=== PATIENT | female | born 1950 | race Caucasian/White ===

== ENCOUNTER 2019-09-13 17:15 | Inpatient (IN) | payer OTHER, MEDICAID ==
[~2019-09-13] VITALS: Ht 157.5 cm; Wt 78.0 kg
[2019-09-13 17:15] VITALS: BP_SYST 130
--- NOTE | 2019-09-13 17:20 | NUR ---
Patient triaged and placed in waiting room. VSS and patient appears in no acute distress at this time. Accompanied by FAMILY, awaiting available bed, and MD notified of need for MSE.
--- NOTE | 2019-09-13 17:45 | NUR ---
SPOKE IN DEPTH WITH SON AND DAUGHTER IN LAW REGARDING PLACEMENT FOR PATIENT. SON STATES THAT HE HAS HAD CONTACT WITH [facility] AND IS ON WAITING LIST FOR [facility].
--- NOTE | 2019-09-13 18:15 | NUR ---
Patient presented to ER C/O generalized weakness. Patient BIB son, Pt A&OX4, ambulatory to ER, skin pink and warm, afebrile. Son of patient state pt has increased shakiness, increase in needing assistance with ADLs, decrease in strength, patient intermittent incontinent & increase in UTI, Patient denies pain at this time, denies N/V/D, Hx of dementia.
[2019-09-13 18:31] LABS: BILIRUBIN,URINE NEGATIVE (NEGATIVE); BLOOD, URINE NEGATIVE (NEGATIVE); CLARITY/URINE CLEAR (CLEAR); COLOR,URINE YELLOW (YELLOW); GLUCOSE,URINE NEGATIVE (NEGATIVE); KETONES,URINE NEGATIVE (NEGATIVE); NITRITE, URINE NEGATIVE (NEGATIVE); PH,URINE 5.5 (5.0-8.0); PROTEIN URINE NEGATIVE (NEGATIVE); UROBILINOGEN,URINE 0.2 (0.2-1.0)
[2019-09-13 18:45] LABS: BASOPHILS # (AUTO) 0.1 K/uL (0.0-0.2); BASOPHILS % (AUTO) 0.9 % (0.0-2.0); EOSINOPHILS # (AUTO) 0.1 K/uL (0.0-0.4); HEMATOCRIT 38.3 % (36-48); LYMPHOCYTES # (AUTO) 1.8 K/uL (1.0-5.5); LYMPHOCYTES % (AUTO) 27.6 % (20.5-51.5); MEAN CORPUSCULAR HEMOGLOBIN 30 pg (27-31); MEAN CORPUSCULAR HGB CONC 34 % (32-36); MEAN CORPUSCULAR VOLUME 89 fL (79.0-98.0); MONOCYTES # (AUTO) 0.5 K/uL (0.0-1.0); MONOCYTES % (AUTO) 7.9 % (1.7-9.3); NEUTROPHILS % (AUTO) 61.6 % (40.0-70.0); PLATELET COUNT (AUTO) 182 K/uL (130-430); RED BLOOD CELL COUNT(AUTO) 4.31 MIL/uL (4.2-6.2); RED CELL DISTRIBUTION WIDTH 12.6 % (9.0-15.0); WHITE BLOOD COUNT (AUTO) 6.6 K/uL (4.8-10.8)
[2019-09-13 18:48] LABS: LEUKOCYTE ESTERASE ,URINE TRACE (NEGATIVE)
[2019-09-13 18:50] LABS: CREATININE 0.95 mg/dL (0.55-1.30)
[2019-09-13 18:51] LABS: BACTERIA,URINE FEW /HPF (None Seen); MUCUS,URINE None Seen /LPF (None Seen); RBC,URINE NONE SEEN /HPF (0-3)
[2019-09-13 18:56] LABS: ALBUMIN 3.7 g/dL (3.4-4.8); TOTAL BILIRUBIN 0.4 mg/dL (0.0-1.0)
--- NOTE | 2019-09-13 19:13 | NUR ---
Report to Ayaan MARCUM
--- NOTE | 2019-09-13 20:17 | NUR ---
Pt taken to Radiology in stable condition
[2019-09-13 20:38] LABS: THYROID STIMULATING HORMONE 2.61 uIu/mL (0.36-3.74)
--- NOTE | 2019-09-13 21:00 | NUR ---
Bedside explaining plan of care.
[2019-09-13] MEDS ORDERED: NITROFURANTOIN MONOHYD/M-CRYST 100 MG CAPSULE PO ONE (21:15)
--- NOTE | 2019-09-13 21:20 | NUR ---
Called Telemetry Floor for bed assignment. No bed avail
--- NOTE | 2019-09-13 21:31 | NUR ---
Pt resting in ED bed comfortably. No acute distress noted. family bedside.
--- NOTE | 2019-09-13 21:40 | NUR ---
Called Telemetry floor for assignment. No beds currently clean and avail. Stated will be ready in 30 minutes.
--- NOTE | 2019-09-13 22:40 | NUR ---
Patient will be admitted to care of [facility]. Admitted to Tele unit. Will go to room 105B. Belongings list completed. Complete and up to date summary report printed. SBAR report to be given at bedside with opportunity for questions.
[2019-09-13] MEDS: D5LR 1,000 ML IV SCH (22:44)
--- NOTE | 2019-09-13 22:45 | NUR ---
Transfer to Tele via ACLS protocol. Licensed nurse present. IV present no signs or symptoms of infiltration.
--- NOTE | 2019-09-13 22:58 | NUR ---
ADMISSION NOTE Received patient from ER via [facility] under the care of Dr. Uribe. Patient admitted with diagnosis of Bradycardia, Failure to thrive. Patient is awake, alert, oriented X 3. Patient oriented to hospital room, call light, toileting, pain management and safety-teach back done. Patient informed that her nurse will be Gilda MARCUM and that her room number is 105B. Call light within reach. Will continue to monitor patient condition.
--- NOTE | 2019-09-13 23:00 | NUR ---
ADMISSION PHYSICAL ASSESSMENT NOTES; pt. was admitted from ER accompanied by her son and daughter in law with DX Failure to thrive and Bradycardia and UTI. pt. alert, awake, oriented to room and use of call light and bed control. pt. denies any pain, on room air. pt. able to move all extremities, pt. forgets and always need to be reminded. bed alarm on, fall risk precautions noted. IVF to restart on left hand.
[2019-09-13 23:30] VITALS: BP_SYST 156
--- NOTE | 2019-09-13 23:30 | NUR ---
NOTES: routine admission done, questions asked and son pretty much gave information. Dr. Uribe here and talked to pt. son and informed about medications, will call later for meds dosages and frequency.
--- NOTE | 2019-09-13 23:45 | NUR ---
NOTES: pt. assisted to the restroom, ambulated and settled in bed. had snacks (sandwich and jello). IVF infusing with D5LR @ 60 cc/hr.
--- NOTE | 2019-09-14 00:07 | NUR ---
NOTES: pt. forgot, get out of bed without calling, reminded again not to get out by herself., call light within reach.
[2019-09-14] MEDS: LEVOFLOXACIN 250 MG/D5W 50 ML IV SCH ×2 (00:56→23:32)
[2019-09-14] MEDS ORDERED: LEVOFLOXACIN 250 MG/D5W 50 ML IV ONE (00:58)
[2019-09-14] MEDS ORDERED: DONE10TA44 PO (01:09)
[2019-09-14] MEDS ORDERED: BUSP5TAB3 PO (01:09)
[2019-09-14] MEDS ORDERED: CITA40TA22 PO (01:09)
[2019-09-14] MEDS ORDERED: LIP20 PO (01:09)
[2019-09-14] MEDS ORDERED: LEVO75TA7 PO (01:09)
[2019-09-14] MEDS ORDERED: LISI10TA5 PO (01:09)
--- NOTE | 2019-09-14 01:42 | NUR ---
NOTES: pt. bed alarm went off, pt. assisted by charge nurse to restroom and voided. back to bed and repositioned self. turn back bed alarm. continue to monitor.
--- NOTE | 2019-09-14 02:24 | NUR ---
CONSULTATION PAGED/CALLED Reason for Consultation: ATAXIA Person Who was Notified: VISH Consulting Physician: DR. HERBERT Ordering Physician: DR. TAVERA
--- NOTE | 2019-09-14 02:24 | NUR ---
CONSULTATION PAGED/CALLED Reason for Consultation: BRADYCARDIA Person Who was Notified: VISH Consulting Physician: DR. MARCELO; LEAD MAINTENANCE TECHNICIAN - DR. MANUEL Ordering Physician: DR. TAVERA
--- NOTE | 2019-09-14 04:00 | NUR ---
NOTES: pt. checked, sleeping comfortably at this time. condition observed.
--- NOTE | 2019-09-14 06:00 | NUR ---
NOTES: pt. up and assisted to restroom, able to ambulate. urine specimen needed, was not able to catch on the urine hat, will endorse to day shift. IVF resume and repositioned for comfort.
--- NOTE | 2019-09-14 06:45 | NUR ---
CLOSING NOTES; pt. went back to sleep. IVF patent. no c/o noted. on fall risk precautions, bed alarm on. for further care and assistance. frquent round, forgets to use call light. .
--- NOTE | 2019-09-14 07:30 | NUR ---
OPENING NOTES: RECEIVED PATIENT FROM GLOST TILE SHADER NURSE. PATIENT IS AWAKE AND ALERT x2 LAYING DOWN IN BED. PATIENT DENIES ANY PAIN AT THE MOMENT. PATIENT IS TOLERATING OXYGEN AT ROOM AIR WITH NO SIGNS OF DISTRESS OR SHORTNESS OF BREATH NOTED. IV SITE IS PATENT WITH NO SIGNS OF INFILTRATION. PATIENT IN STABLE CONDITION. SAFETY, FALL AND ASPIRATION PRECAUTIONS ARE IN PLACE. BED LOCKED IN LOWEST POSITION WITH CALL LIGHT IN REACH. WILL CONTINUE TO MONITOR PATIENT FOR ANY CHANGES.
[2019-09-14 08:18] VITALS: BP_SYST 141
[2019-09-14 08:29] LABS: BASOPHILS % (AUTO) 0.8 % (0.0-2.0); EOSINOPHILS # (AUTO) 0.1 K/uL (0.0-0.4); EOSINOPHILS % (AUTO) 2.5 % (0.0-4.0); HEMATOCRIT 35.4 % (36-48); HEMOGLOBIN 11.9 g/dL (12.0-16.0); LYMPHOCYTES % (AUTO) 34.9 % (20.5-51.5); MEAN CORPUSCULAR HEMOGLOBIN 30 pg (27-31); MEAN CORPUSCULAR HGB CONC 34 % (32-36); MEAN CORPUSCULAR VOLUME 89 fL (79.0-98.0); MONOCYTES # (AUTO) 0.5 K/uL (0.0-1.0); NEUTROPHILS # (AUTO) 3.1 K/uL (1.8-7.7); NEUTROPHILS % (AUTO) 52.8 % (40.0-70.0); PLATELET COUNT (AUTO) 150 K/uL (130-430); RED BLOOD CELL COUNT(AUTO) 3.97 MIL/uL (4.2-6.2); RED CELL DISTRIBUTION WIDTH 12.6 % (9.0-15.0); WHITE BLOOD COUNT (AUTO) 5.8 K/uL (4.8-10.8)
[2019-09-14 08:43] LABS: CALCIUM 8.5 mg/dL (8.4-11.0); CREATININE 0.91 mg/dL (0.55-1.30); POTASSIUM 3.5 mmol/L (3.5-5.1)
[2019-09-14 09:23] LABS: ERYTHROCYTE SEDIMENTATION RATE 13 MM/HR (0-20)
--- NOTE | 2019-09-14 09:58 | NUR ---
Nutrition Update Terell Scale 18 noted. Pt admitted for bradycardia, FTT Diet: regular, mech soft BMI: 31.6 kg/m2 RD to follow per nutrition care standards.
--- NOTE | 2019-09-14 10:05 | NUR ---
RN ROUNDS: PATIENT IS AWAKE AND ALERT x2 LAYING DOWN IN BED. FAMILY AT BEDSIDE. PATIENT DENIES ANY PAIN AT THE MOMENT. NO SIGNS OF DISTRESS OR SHORTNESS OF BREATH NOTED. PATIENT IN STABLE CONDITION. WILL CONTINUE TO MONITOR PATIENT FOR ANY CHANGES.
[2019-09-14 11:19] VITALS: BP_SYST 137
--- NOTE | 2019-09-14 12:15 | NUR ---
RN ROUNDS: PATIENT IS AWAKE AND ALERT x2 SITTING UP IN BED. FAMILY AT BEDSIDE. PATIENT DENIES ANY PAIN AT THE MOMENT. NO SIGNS OF DISTRESS OR SHORTNESS OF BREATH NOTED. PATIENT IN STABLE CONDITION. WILL CONTINUE TO MONITOR PATIENT FOR ANY CHANGES.
--- NOTE | 2019-09-14 12:30 | NUR ---
MD ROUNDS: DR. MARCELO MAKING HIS ROUNDS. AWARE OF PATIENT'S CONDITION. NEW ORDERS GIVEN.
[2019-09-14] MEDS: D5LR 1,000 ML IV SCH (13:04)
--- NOTE | 2019-09-14 14:10 | NUR ---
RN ROUNDS: PATIENT IS AWAKE AND ALERT x2 LAYING DOWN IN BED. NO SIGNS OF DISTRESS OR SHORTNESS OF BREATH NOTED. PATIENT IN STABLE CONDITION. WILL CONTINUE TO MONITOR PATIENT FOR ANY CHANGES.
[2019-09-14] MEDS ORDERED: LISINOPRIL 10 MG TABLET (PRINIVIL) PO ONE (15:15)
[2019-09-14] MEDS ORDERED: LEVOTHYROXINE SODIUM 0.075 MG TABLET PO ONE (15:15)
[2019-09-14 15:45] VITALS: BP_SYST 140
--- NOTE | 2019-09-14 16:06 | NUR ---
RN ROUNDS: PATIENT IS AWAKE AND ALERT x2 LAYING DOWN IN BED. NO SIGNS OF DISTRESS OR SHORTNESS OF BREATH NOTED. PATIENT WAS ASSISTED TO THE RESTROOM. NO SIGNS OF DISTRESS OR SHORTNESS OF BREATH NOTED. PATIENT IN STABLE CONDITION. WILL CONTINUE TO MONITOR PATIENT FOR ANY CHANGES.
--- NOTE | 2019-09-14 16:38 | NUR ---
P.T. NOTES P.T. HENRY COMPLETED; PATIENT MAY MELLISA W/ NURSE AD GUSTAVO; VERY FORGETFUL. Addendum: 09/14/19 at 1638 by Rosana Benedict PT Amended: Links added.
--- NOTE | 2019-09-14 16:45 | NUR ---
Dietitian Recommendations *Continue Regular, Mechanical Soft diet Please see Nutrition Assessment for further details. LT, RD
--- NOTE | 2019-09-14 18:47 | NUR ---
CLOSING NOTES: PATIENT IS AWAKE AND ALERT x2 LAYING DOWN IN BED. PATIENT DENIES ANY PAIN AT THE MOMENT. PATIENT IS TOLERATING OXYGEN AT ROOM AIR WITH NO SIGNS OF DISTRESS OR SHORTNESS OF BREATH NOTED. IV SITE IS PATENT WITH NO SIGNS OF INFILTRATION. PATIENT IN STABLE CONDITION. SAFETY, FALL AND ASPIRATION PRECAUTIONS REMAINED IN PLACE THROUGHOUT THE SHIFT. BED LOCKED IN LOWEST POSITION WITH CALL LIGHT IN REACH. WILL ENDORSE PATIENT CARE TO ONCOMING KILN FURNITURE CASTER NURSE.
--- NOTE | 2019-09-14 19:15 | NUR ---
OPENING NOTES Late entry due to patient care. Bedside report received from dayshift nurse. Patient received lying in bed, awake, watching TV. No s/s of acute distress noted. Breathing even and unlabored. IVF infusing well. Call light with patient. Bed alarm on. Will continue to monitor.
[2019-09-14 20:00] VITALS: BP_SYST 145
[2019-09-14] MEDS: ATORVASTATIN 20 MG TABLET PO SCH (21:08)
[2019-09-14] MEDS: DONEPEZIL HCL 5 MG TABLET (ARICEPT) PO SCH (21:08)
--- NOTE | 2019-09-14 21:30 | NUR ---
ROUNDS Patient in bed sleeping. No s/s of acute distress noted. Breathing even and unlabored. IVF infusing well. Call light with patient. Bed alarm on. Will continue to monitor.
--- NOTE | 2019-09-15 00:15 | NUR ---
ASSISTED TO VOID Patient assisted to bathroom and back to bed, voided, patient tolerated well. All needs met. Call light with patient. Bed alarm on. Will continue to monitor.
[2019-09-15 00:35] VITALS: BP_SYST 156
--- NOTE | 2019-09-15 03:00 | NUR ---
ROUNDS Patient asleep. No s/s of acute distress noted. Breathing even and unlabored. Call light with patient. Bed alarm on. Will continue to monitor.
--- NOTE | 2019-09-15 05:00 | NUR ---
ROUNDS Patient asleep. All needs met. Bed alarm on. Will continue to monitor.
[2019-09-15] MEDS: D5LR 1,000 ML IV SCH (06:22)
--- NOTE | 2019-09-15 06:38 | NUR ---
CLOSING NOTES Patient in bed sleeping at this time. No s/s of acute distress noted. Breathing even and unlabored. IVF infusing well, IV site patent, no signs of infiltration or infection noted. SCDs attached and operating. All needs met throughout shift. Fall and safety precautions maintained throughout shift. Will continue to monitor until patient care is endorsed to oncoming dayshift nurse.
[2019-09-15 09:06] LABS: PREALBUMIN 19 mg/dL (10-36)
[2019-09-15 09:50] VITALS: BP_SYST 167
--- NOTE | 2019-09-15 09:50 | NUR ---
Neuro/mobility Patient just woke up , ambulates to bathroom with stand bye assist , steady gait ,patient doesn't call when shes getting out of bed , on bed alarm for safety, very forgetful as verbalized, oriented to herself date of , place , reoriented patient to room, safety, handwashing, served breakfast 75% tolerates well due meds given , patient wants go back to sleep after meal, safety/fall precaution initiated.
[2019-09-15] MEDS: LEVOTHYROXINE SODIUM 0.075 MG TABLET PO SCH (09:53)
[2019-09-15] MEDS: LISINOPRIL 10 MG TABLET (PRINIVIL) PO SCH (09:54)
[2019-09-15 11:12] VITALS: BP_SYST 114
--- NOTE | 2019-09-15 14:11 | NUR ---
Discharge Planning: DCP spoke received DC order for HH, DCP spoke to patient to inquire of any previous home health. Patient had no preference, DCP faxed to [facility] (f [phone] p [phone]). Addendum: 09/15/19 at 1626 by Philomena RAMIREZ [facility] (f [phone] p [phone]) accepted pt, DCP spoke to patient she metion to call her son also. DCP spoke to son Keegan [phone] the discharge plan for patient is to go to [facility] and then to [facility]. Son stated family is not feeling it is safe for patient to live alone any longer. Keegan stated he has visited many SNF's. Addendum: 09/15/19 at 1647 by Philomena David DP DCP receive DC order for SNF. DCP faxed to [facility].
--- NOTE | 2019-09-15 14:36 | NUR ---
Patient resting provided warm blanket, safety/fall precaution initiated.
[2019-09-15 15:04] VITALS: BP_SYST 112
--- NOTE | 2019-09-15 18:13 | NUR ---
No significant changes in assessment , needs attended, safety/fall precaution initiated.
--- NOTE | 2019-09-15 19:28 | NUR ---
OPENING NOTES Bedside report received from dayshift nurse. Patient received lying in bed, awake, watching TV. NO s/s of acute distress noted. Breathing even and unlabored. Patient's family members at bedside. Call light with patient. Bed alarm on. Will continue to monitor.
[2019-09-15 20:00] VITALS: BP_SYST 119
[2019-09-15] MEDS: ATORVASTATIN 20 MG TABLET PO SCH (20:28)
[2019-09-15] MEDS: DONEPEZIL HCL 5 MG TABLET (ARICEPT) PO SCH (20:28)
--- NOTE | 2019-09-15 21:00 | NUR ---
ASSISTED TO BATHROOM Patient assisted to bathroom and back to bed by RN. Patient tolerated well. Call light with patient. Bed alarm on. Will continue to monitor.
[2019-09-15] MEDS: LEVOFLOXACIN 250 MG/D5W 50 ML IV SCH (22:33)
--- NOTE | 2019-09-15 23:00 | NUR ---
NEW IV Previous IV site was leaking, removed by RN at this time, catheter fully intact, no active bleeding noted. New IV site at right forearm, 22gauge, patient tolerated well. IV antibiotic infusing well. Call light with patient. Bed alarm on. Will continue to monitor.
[2019-09-16 00:50] VITALS: BP_SYST 133
--- NOTE | 2019-09-16 01:00 | NUR ---
ROUNDS Patient in bed sleeping at this time. No signs of discomfort noted. Chest rise and fall even bilaterally. IVF infusing well. Call light with patient. Bed alarm on. Will continue to monitor.
--- NOTE | 2019-09-16 03:00 | NUR ---
ROUNDS Patient in bed asleep. No s/s of acute distress noted. Breathing even and unlabored. Call light with patient. Bed alarm on. Will continue to monitor.
--- NOTE | 2019-09-16 05:00 | NUR ---
ROUNDS Patient asleep at this time. No signs of discomfort noted. Chest rise and fall even bilaterally. Call light with patient. Bed alarm on. Will continue to monitor.
--- NOTE | 2019-09-16 06:43 | NUR ---
CLOSING NOTES Patient in bed sleeping at this time. No s/s of acute distress noted. Breathing even and unlabored. IV site is patent, no signs of infiltration or infection noted. All needs met throughout shift. Fall and safety precautions maintained throughout shift. Will continue to monitor until patient care is endorsed to oncoming dayshift nurse.
[2019-09-16 07:38] VITALS: BP_SYST 119
--- NOTE | 2019-09-16 07:39 | NUR ---
Neuro Patient awake/alert oriented x2 to herself , birthday , very pleasant , slept well as verbalized, reoriented patient to room, plan of care , safety/fall precaution initiated , needs attended.
[2019-09-16] MEDS: LISINOPRIL 10 MG TABLET (PRINIVIL) PO SCH (08:09)
[2019-09-16] MEDS: LEVOTHYROXINE SODIUM 0.075 MG TABLET PO SCH (08:09)
[2019-09-16] MEDS ORDERED: CHOLECALCIFEROL (VITAMIN D3) 2,000 UNIT TABLET PO SCH (09:00)
--- NOTE | 2019-09-16 10:12 | NUR ---
PATIENT RESTING: Patient resting quietly. No acute distress noted.
[2019-09-16 12:14] VITALS: BP_SYST 115
--- NOTE | 2019-09-16 12:32 | NUR ---
Discharge planning: DCP received room [facility] from [facility] ([phone]), DCP spoke to son made him aware. Addendum: 09/16/19 at 1519 by Philomena RAMIREZ [facility] ([phone]) Rm 103A, Beny ([phone]) 5:00pm P/U packet taken to nurse station.
[2019-09-16 12:37] VITALS: BP_SYST 115; BP_SYST 127
[2019-09-16 15:45] VITALS: BP_SYST 127
--- NOTE | 2019-09-16 15:45 | NUR ---
Report given to [facility] with all the information, pickle solution maker time 5 pm , Keegan Turner and patient informed and agreed for transfer.
--- NOTE | 2019-09-16 17:05 | NUR ---
Discharged to [facility] via [facility] ambulance vitals sign stable , awake/alert oriented, son Keegan took all the belongings.
== END 2019-09-16 17:05 | DRG 308 ==
LOC: SED 17:15 → STU 21:12 → SMU 09-14 14:00
PROVIDERS: ADMIT Internal Medicine; ATTEND Internal Medicine
DX: R00.1 Bradycardia, unspecified (principal); G92 Toxic encephalopathy; N39.0 Urinary tract infection, site not specified; E03.9 Hypothyroidism, unspecified; E78.5 Hyperlipidemia, unspecified; E78.00 Pure hypercholesterolemia, unspecified; F41.9 Anxiety disorder, unspecified; F02.80 Dementia in other diseases classified elsewhere, unspecified severity, without behavioral disturbance, psychotic disturbance, mood disturbance, and anxiety; F32.9 Major depressive disorder, single episode, unspecified; G30.9 Alzheimer's disease, unspecified; I10 Essential (primary) hypertension; Z79.899 Other long term (current) drug therapy; Z87.891 Personal history of nicotine dependence; Z88.0 Allergy status to penicillin; T50.995A Adverse effect of other drugs, medicaments and biological substances, initial encounter
CPT/HCPCS: 36415; 70450-TC; 71045; 80048; 80053; 80061; 81000-TC; 82607; 83605; 83880; 84134; 84439; 84443-TC; 84484; 85025; 85651-TC; 87086; 93005; 93306; 96360; 99285; G0378; J1956; J7120